=== PATIENT | male | born 1945 | race Caucasian/White ===

== ENCOUNTER 2020-12-30 23:38 | Emergency (ER) | payer MEDICARE, SELFPAY ==
--- NOTE | ~2020-12-30 | CT_ITS ---
EXAMINATION: CT brain wo con DATE: 12/31/2020 01:02 INDICATION: Fell off barstool. Trauma to the head. Loss of consciousness. TECHNIQUE: Computed tomography (CT) of the head was performed without intravenous contrast. The dose- length product was 681.00 mGy-cm. Automated exposure control and iterative reconstruction technique w ere employed. COMPARISON: CT dated 12/24/2016 FINDINGS: There are multiple areas of hemorrhage in the right hemisphere involving the right frontal, temporal and parietal lobes with areas of associated vasogenic edema posteriorly. There is trace ext ra-axial blood of the left parietal lobe. Small approximately 4 mm subdural hematoma right cerebral c onvexity. 4 mm leftward midline shift with mass effect on the right lateral ventricle. No hydrocephal us. There is hypoattenuation of the left cerebellar hemisphere which may represent subacute or chroni c infarction. There is a chronic infarct of the right occipital lobe. No depressed skull fracture. Right parietal s calp hematoma. There are scattered mild periventricular and subcortical white matter changes, most li heavenly related to small vessel ischemic disease (microangiopathy). There are chronic bilateral lacunar infarctions. There is intracranial atherosclerosis. IMPRESSION: 1. Bilateral areas of parenchymal and extra-axial hemorrhage as described above in greater detail. Th ere is right hemispheric mass effect with midline shift to the left measuring 4 mm. 2: Subacute/chronic left cerebellar infarction. Chronic right occipital lobe infarction. Chronic lacu katie infarctions. Reviewed, dictated and finalized at location A. IMPRESSION: 1. Bilateral areas of parenchymal and extra-axial hemorrhage as described above in greater detail. There is right hemispheric mass effect with midline shift t o the left measuring 4 mm. 2: Subacute/chronic left cerebellar infarction. Chronic right occipital lobe in farction. Chronic lacunar infarctions.
--- NOTE | ~2020-12-30 | XR_ITS ---
XR chest ET placement 12/31/2020 01:50 Indication: Respiratory distress. Procedure: AP portable chest Comparison: 12/31/2020 Findings: Endotracheal tube tip 2.6 cm above the joseph. Heart size normal. NG tube in the stomach. M ild bilateral perihilar interstitial infiltrates unchanged. No pleural effusion or pneumothorax. Impression: 1: Stable bilateral perihilar interstitial infiltrates which may represent pneumonia or edema. Reviewed, dictated and finalized at location A. Impression: 1: Stable bilateral perihilar interstitial infiltrates which may represent pneu monia or edema.
--- NOTE | ~2020-12-30 | CT_ITS ---
EXAMINATION: CT cervical spine wo con DATE: 12/31/2020 01:02 INDICATION: Fell off barstool. Trauma to the neck. Neck pain. TECHNIQUE: Computed tomography (CT) of the cervical spine was performed without intravenous contrast. The dose-length product was 415 mGy-cm. Automated exposure control and iterative reconstruction tech [employer] were employed. COMPARISON: 12/24/2016 FINDINGS: No acute fracture or traumatic malalignment. Study limited by motion. Odontoid process with in normal limits. There is straightening of cervical lordosis, likely due to muscle spasm or position ing. There is mild cervical spondylosis. There is atherosclerosis of the carotid arteries. Calcified granuloma right lung apex. Mild levocurvature of the cervical spine. Mild multilevel uncinate degener ative change. IMPRESSION: 1. No acute abnormality of the cervical spine. Reviewed, dictated and finalized at location A.
--- NOTE | ~2020-12-30 | XR_ITS ---
XR chest 1V portable 12/31/2020 00:47 Indication: Chest pain after fall Procedure: AP portable chest Comparison: No prior studies for comparison. Findings: Subtle perihilar interstitial infiltrates. Heart size normal. No pleural effusion or pneumo thorax. Impression: 1: Subtle perihilar interstitial infiltrates which may represents mild edema or pneumonia. Reviewed, dictated and finalized at location A. Impression: 1: Subtle perihilar interstitial infiltrates which may represents mild edema or pneumonia.
[2020-12-30 23:48] VITALS: BP 199/93; PULSE 78; RESP 20; TEMP 36.5; O2SAT 100
[2020-12-31 00:23] LABS: Basophils Absolute Auto 0.1 K/mm3 (0.0-0.1); Eosinophils Absolute Auto 0.1 K/mm3 (0-0.3); Hematocrit 36.4 % (42.0-52.0); Hemoglobin 12.5 g/dL (14.0-18.0); Immature Granulocyte Absolute 0.07 K/mm3 (0.00-0.031); Immature Granulocyte Percent A 0.8 % (0-0.5); Lymphocytes Absolute Auto 1.93 K/mm3 (0.9-3.2); Lymphocytes Percent Auto 22.3 % (18.3-44.2); Mean Corpuscular HGB Conc 34.3 g/dl (32-36); Mean Corpuscular Volume 84.5 fl (80-100); Mean Platelet Volume 11.6 fl (7.4-10.4); Monocytes Absolute Auto 0.5 K/mm3 (0.1-0.6); Monocytes Percent Auto 5.5 % (2.6-8.5); Neutrophils Percent Auto 69.4 % (45.5-73.1); Platelet Count Result 164 k/mm3 (150-375); Red Blood Count 4.31 M/mm3 (4.6-6.20); Red Cell Distribution Width 12.2 % (11.5-14.5); White Blood Count 8.7 K/mm3 (4.5-10.0)
[2020-12-31 00:30] LABS: Add Urine Microscopic? YES; Appearance Urine Clear (Clear); Bilirubin Urine Negative (Negative); Blood Urine Negative (Negative); Color Urine Straw (Yellow); Glucose Urine UA Negative (Negative); Ketones Urine Negative (Negative); Leukocyte Esterase Ur Negative LEU/UL (Negative); Mucus Urine Rare /lpf; Nitrate Urine Negative (Negative); Protein Urine 2+ mg/dL (Negative); Specific Grav Ur 1.009 (1.001-1.035); Urobilinogen Urine Negative mg/dL (<2.0); WBC Urine 0-3 /hpf
[2020-12-31 00:38] LABS: Alanine Aminotransferase 23 U/L (4-50); Albumin Level 4.1 g/dL (3.5-5.1); Alkaline Phosphatase 76 U/L (38-126); Anion Gap 13 mmol/L (8-16); Aspartate Amino Transferase 31 U/L (17-59); Bilirubin,Total 0.4 mg/dL (0.2-1.3); Blood Urea Nitrogen 18 mg/dL (9-20); Calcium 8.9 mg/dL (8.4-10.2); Carbon Dioxide 24 mmol/L (22-30); Chloride 99 mmol/L (98-107); Estimated Glomerular Filt Rate > 60; Glucose 186 mg/dL (65-110); Potassium 3.1 mmol/L (3.4-5.0); Sodium 136 mmol/L (137-145)
--- NOTE | 2020-12-31 00:43 | ED.GENADULT ---
HPI - General Adult General Chief complaint: Fall <Arsh Hilario PA-C - Last Filed: 12/31/20 01:36> Stated complaint: Fall-ETOH <Arsh Hilario PA-C - Last Filed: 12/31/20 01:36> Time Seen by Provider: 12/31/20 00:23 <Arsh Hilario PA-C - Last Filed: 12/31/20 01:36> Source: patient, EMS and RN notes reviewed <Arsh Hilario PA-C - Last Filed: 12/31/20 01:36> Mode of arrival: EMS <Arsh Hilario PA-C - Last Filed: 12/31/20 01:36> Limitations: clinical condition <Arsh Hilario PA-C - Last Filed: 12/31/20 01:36> History of Present Illness HPI narrative: Patient 75-year-old male who presents from bar after becoming intoxicated falling back striking his head EMS were contacted brought patient to ER for evaluation on arrival patient is intoxicated he has a contusion to the posterior head patient will answer questions but is an unreliable historian secondary to intoxication patient did have possible loss of consciousness from the fall per observer. Patient placed in hard collar. <Arsh Hilario PA-C - Last Filed: 12/31/20 01:36> Related Data Allergies/adverse reactions: Allergies Allergy/AdvReac Type Severity Reaction Status Date / Time No Known Allergies Allergy Unverified 12/24/16 22:40 <Arsh Hilario PA-C - Last Filed: 12/31/20 01:36> Review of Systems Review of Systems: All systems reviewed & are unremarkable except as noted in HPI and below <Arsh Hilario PA-C - Last Filed: 12/31/20 01:36> [facility] Past Medical History Medical History: Medical History Subarachnoid hemorrhage <Arsh Hilario PA-C - Last Filed: 12/31/20 01:36> Social History Social History: Social History Gender identity (if verbalized by the patient): Male <MOLINA Curiel Last Filed: 12/31/20 01:36> Exam Narrative: GENERAL: Ill-appearing, well-nourished, and in no acute distress. HEAD: Normocephalic, contusion posterior scalp. EYES: PERRLA and EOMI. ENT: Nares clear, no rhinorrhea or epistaxis. Mucous membranes moist. NECK: Supple. No adenopathy or masses. CHEST: Clear to auscultation. No respiratory distress. No wheezes rales or rhonchi HEART: Regular rate and rhythm. No murmur heard. Normal peripheral pulses. ABDOMEN: Soft, nontender, nondistended EXTREMITIES: Normal range of motion. No edema. No deformities of the cervical thoracic or lumbar spine SKIN: Warm, dry, no rash. NEURO: No focal deficits. Alert and oriented to self. GCS of 11 PSYCH: Patient appears acutely intoxicated with altered mentation <Arsh Hilario PA-C - Last Filed: 12/31/20 01:36> Course Course Emergency Course: Patient found to have intraparenchymal hemorrhage will be flown to [facility] for trauma eval he has been intubated in the emergency department he is hemodynamically stable at this time. Patient has remained altered since his arrival. <Arsh Hilario PA-C - Last Filed: 12/31/20 01:36> [employer]ST PRESIDENT/PRACTICE OWNER/PA Physician Supervision For this patient encounter, I reviewed the OPTOMETRIST PRESIDENT/PRACTICE OWNER or PA documentation, treatment plan, and medical decision making; and I had [id number] time with this patient. 75 yo male brought in by EMS after falling at a bar. Thought to be intoxicated. Large intraparenchymal bleed on CT. Intubated for airway protection. Transfer arranged to [place]. Picked up by [facility]. <Francois Onofre MD - Last Filed: 12/31/20 02:02> Consultations Consultation #1: Dr. Faulkner [facility] has accepted this patient for transfer <Arsh Hilario PA-C - Last Filed: 12/31/20 01:36> Date: 12/31/20 <MOLINA Curiel Last Filed: 12/31/20 01:36> Time: 01:35 <Arsh Hilario PA-C - Last Filed: 12/31/20 01:36> Vital Signs Vital signs: Vital Signs Temperature 36.5 C 12/30/20 23:48 Pulse Rate 78 12/30/20
[2020-12-31 00:45] LABS: Benzodiazepines Screen Urine Negative (Negative)
[2020-12-31 00:47] LABS: Barbiturate Screen Urine Negative (Negative)
[2020-12-31 00:50] LABS: Amphetamine Screen Urine Negative (Negative); Cannabinoid Screen Urine Negative (Negative); Cocaine Screen Urine Negative (Negative); Methadone Screen Urine Negative (Negative); Opiate Screen Urine Negative (Negative); Phencyclidine Screen Urine Negative (Negative)
[2020-12-31] MEDS: ONDANSETRON INJ 4 MG/2 ML VIAL (00:56)
[2020-12-31 00:58] LABS: Ethanol 95 mg/dL (<10)
[2020-12-31 01:04] VITALS: BP 172/62; PULSE 75; RESP 20; TEMP 36.7; O2SAT 97
[2020-12-31] MEDS: PANTOPRAZOLE SODIUM IV 40 MG VIAL IV PUSH (01:04)
[2020-12-31] MEDS: SODIUM CHLORIDE 0.9% IV 1,000 ML 999 ML IV CONT (01:04)
--- NOTE | 2020-12-31 01:19 | PC.NURSE ---
LEYLA Onofre at bedside to intubate pt. 0121 20 mg etomidate administered IVP 0123 50 mg succinylcholine administered IVP 0130 Pt. intubated by LEYLA Onofre with a size 8 ET tube measuring at the 24 lip.
--- NOTE | 2020-12-31 01:40 | PC.NURSE ---
ERP Gerdelman IVP 80 mg Propofol
--- NOTE | 2020-12-31 01:45 | PC.NURSE ---
Keppra infused at 400/mls per hour
--- NOTE | 2020-12-31 01:45 | PC.NURSE ---
VOR[facility] ERP Nahid 1g Keppra infused via iv
--- NOTE | 2020-12-31 01:46 | PCRCNOTE ---
Pt intubated at [address] Onofre with 8.0 ETT via glidescope. Tube secured via commercial tube garner, 24 at the lips. Placement confirmation via CO2 detector, auscultation, direct visualization, and CXR. Transport team on site to transfer pt to [place].
[2020-12-31 01:50] VITALS: BP 150/80; PULSE 78; RESP 16; O2SAT 99
== END 2020-12-31 01:50 | disposition short-term general hospital (02) ==
PROVIDERS: Emergency Medicine Emergency Medical Services; Emergency Provider Emergency Medicine
DX: S06.309A Unspecified focal traumatic brain injury with loss of consciousness of unspecified duration, initial encounter (principal); R40.2412 Glasgow coma scale score 13-15, at arrival to emergency department; W07.XXXA Fall from chair, initial encounter
CPT/HCPCS: 36415; 70450; 71045; 72125; 80053; 80307; 81001; 85025; 96361; 96374; 96375; 99291; C9113; J0330; J0461; J1953; J2405; J2704; J7030